=== PATIENT | female | born 1965 | race Caucasian/White ===

== ENCOUNTER → 2021-09-05 | Outpatient (CLI) | payer BC ==
[~2021-09-05] MED LIST: ARIMIDEX1 MG PO; BUSPAR10 MG PO; GLUCOPHAGE850 MG/TAB PO; LEXAPRO 10MG10 MG PO; NORCO 325 MG-51 TAB PO; PRILOSEC10 MG PO; PRINIVIL20 MG PO; SODIUM CHLORIDE1 GM PO; TENORMIN 5050 MG/TAB PO; TYLENOL 325MG325 MG PO; ZOHYDRO ER10 MG PO
== END ==
LOC: COL.VAS 14:10
DX: M79.89 Other specified soft tissue disorders (principal)

== ENCOUNTER 2021-09-12 07:39 | Day surgery (SDC) | payer BC ==
[~2021-09-12] VITALS: Ht 170.2 cm; Wt 118.6 kg
[2021-09-12] MEDS ORDERED: TENORMIN 5050 MG/TAB PO (08:14)
[2021-09-12] MEDS ORDERED: PRINIVIL20 MG PO (08:14)
[2021-09-12] MEDS ORDERED: ARIMIDEX1 MG PO (08:15)
[2021-09-12] MEDS ORDERED: BUSPAR10 MG PO (08:16)
[2021-09-12] MEDS ORDERED: LEXAPRO 10MG10 MG PO (08:16)
[2021-09-12] MEDS ORDERED: GLUCOPHAGE850 MG/TAB PO (08:16)
[2021-09-12] MEDS ORDERED: ZOHYDRO ER10 MG PO ×3 (08:17→11:49)
[2021-09-12] MEDS ORDERED: PRILOSEC10 MG PO (08:18)
[2021-09-12 09:21] VITALS: BP 129/72; PULSE 59; TEMP 96.7
[2021-09-12] MEDS ORDERED: NORCO 325 MG-51 TAB PO (12:00)
[2021-09-12 12:20] VITALS: BP 129/72; PULSE 86; TEMP 98.6
--- NOTE | 2021-09-12 12:20 | NUR ---
Patient arrived from PACU escorted by ELISA Evans. Patient is sleepy but arousable. Report obtained. Vitals obtained. Mother is present in her room. Patient reports pain, 6/10. RN told the patient that she needs to have a small drink and a small snack before PO medication can be administered. Patient requested warm water and crackers. Side rails x2. Call russell is at bedside.
[2021-09-12 12:35] VITALS: BP 128/68; PULSE 83
--- NOTE | 2021-09-12 12:35 | NUR ---
Patient is more alert, however still sleeps unless stimulated. Patient is tolerating her water and crackers well. Patient requested a warm muffin to eat. Vitals obtained.
[2021-09-12 12:50] VITALS: BP 142/72; PULSE 90
--- NOTE | 2021-09-12 12:50 | NUR ---
Patient had two bites of the muffin and requested apple sauce. Patient also requested more luke warm water to drink. Vitals obtained.
[2021-09-12 13:05] VITALS: BP 160/78; PULSE 60
--- NOTE | 2021-09-12 13:14 | NUR ---
Zofran administered due to neusea with vomiting, 20ml total. Patient expressed desire to go home.
--- NOTE | 2021-09-12 13:30 | NUR ---
Patient was assisted with ambulating from bed to commode, and then to the bathroom. Patient was able to void. IV disconnected at this time.
--- NOTE | 2021-09-12 13:45 | NUR ---
Discharge instructions and educational material was reviewed at this time. Patient verbalized understanding and signed the related paperwork. Patient denied having any further questions or concerns. IV discontinued at this time. Catheter tip intact. Pressure dressing applied. No swelling or redness noted.
--- NOTE | 2021-09-12 14:00 | NUR ---
Patient is waiting for her ride to arrive.
--- NOTE | 2021-09-12 14:30 | NUR ---
Patient was escorted out to the patient entrence by ELISA Ortega and transferred into the care of her Mother, and brother who is present to drive. Patient was assisted into the front seat, where she secured her seat belt. Her mother has the discharge packet and personal belongings.
== END 2021-09-12 14:45 | disposition home or self-care (01) ==
LOC: SDCO 07:39
DX: K80.10 Calculus of gallbladder with chronic cholecystitis without obstruction (principal); C96.9 Malignant neoplasm of lymphoid, hematopoietic and related tissue, unspecified; E11.9 Type 2 diabetes mellitus without complications; K21.9 Gastro-esophageal reflux disease without esophagitis; I10 Essential (primary) hypertension; F32.9 Major depressive disorder, single episode, unspecified; F41.9 Anxiety disorder, unspecified; F32.A Depression, unspecified; Z79.84 Long term (current) use of oral hypoglycemic drugs; Z79.899 Other long term (current) drug therapy; Z85.42 Personal history of malignant neoplasm of other parts of uterus; Z83.3 Family history of diabetes mellitus
CPT/HCPCS: J0690; J1100; J2405; J2704; J2710; J3010; J7030; J7120

== ENCOUNTER 2021-09-14 08:10 | Inpatient (IN) | payer BC ==
[~2021-09-14] VITALS: Ht 170.2 cm; Wt 128.0 kg
[~2021-09-14 08:10] MED LIST changes: -SODIUM CHLORIDE1 GM PO; -TYLENOL 325MG325 MG PO
[2021-09-14 08:59] LABS: HEMOGLOBIN 11.9 g/dl (12.5-16.0); MEAN CELL VOLUME 81 fl (80.0-100.0); MEAN CORPUSCULAR HEMOGLOBIN 27 pg (27-31); MEAN CORPUSCULAR HGB CONC 34 g/dl (33.0-37.0); MEAN PLATELET VOLUME 10.6 fl (7.4-10.4); PLATELET COUNT 285 K/mm3 (130-400); RED BLOOD COUNT 4.34 M/mm3 (4.10-5.30); REDCELL DISTRIBUTION WIDTH-CV 14.8 % (11.5-14.5)
[2021-09-14 09:00] LABS: HEMATOCRIT 35.2 % (37.0-47.0)
[2021-09-14 09:12] LABS: BAND 3 % (0-10); LYMPHOCYTE 5 % (20.0-51.0); NEUTROPHILS 82 % (42.0-75.2); PLATELET ESTIMATE NORMAL (NORMAL)
[2021-09-14 09:17] LABS: BILIRUBIN,TOTAL 0.5 mg/dL (0.2-1.2); C-REACTIVE PROTEIN 29.79 mg/dL (0.00-0.50); CALCIUM 11.4 mg/dL (8.4-10.2); CREATININE, serum 1.64 mg/dL (0.57-1.11); POTASSIUM 4.9 mmol/L (3.5-4.5); TOTAL PROTEIN 7.7 gm/dL (6.2-8.1)
[2021-09-14 10:30] LABS: COLLECTION METHOD CLEAN CATCH
[2021-09-14 10:44] LABS: MUCOUS Present (NOT PRESENT); PH 5 (5-8); SQUAMOUS EPITHELIAL 0-2 /hpf (0-10); URINE APPEARANCE Hazy (CLEAR/HAZY); URINE BACTERIA None Seen /hpf (NONE SEEN); URINE BILIRUBIN Negative (NEGATIVE); URINE BLOOD Negative (NEGATIVE); URINE COLOR Yellow (YELLOW); URINE GLUCOSE Negative (NEGATIVE); URINE KETONE Trace (NEGATIVE); URINE LEUKOCYTE ESTERASE Negative (NEGATIVE); URINE NITRATE Negative (NEGATIVE); URINE PROTEIN(semi-quant) 1+ (NEGATIVE); URINE RBC 0-2 /hpf (0-2); URINE UROBILINOGEN Negative (NEGATIVE)
[2021-09-14] MEDS ORDERED: TYLENOL 325MG325 MG PO (14:31)
[2021-09-14 14:42] VITALS: BP 131/67; PULSE 70; TEMP 98
--- NOTE | 2021-09-14 14:42 | NUR ---
PT ADMITTED TO ROOM 327 FROM ED. MED REC COMPLETE PT ORIETNTED TO ROOM. SITTING UP IN RECLINER AT THIS TIME, DENIES N/V OR PAIN. INT TO RH.
[2021-09-14 16:23] VITALS: BP 127/67; PULSE 70; TEMP 97.5
[2021-09-14 16:23] LABS: CALCIUM 11.1 mg/dL (8.4-10.2); CREATININE, serum 1.55 mg/dL (0.57-1.11); POTASSIUM 5.1 mmol/L (3.5-4.5)
[2021-09-14 16:55] LABS: OSMOLALITY-URINE random 684 Osm/kg (50-1200)
[2021-09-14] MEDS ORDERED: PRILOSEC10 MG PO (20:11)
--- NOTE | 2021-09-14 21:30 | NUR ---
PT INDEPENDENT IN ROOM. ON FLUID RESTRICTION AND NO FREE WATER, NA+=128. HAS SL TO RT HAND, FLUSHES WELL. DISCUSSED NEXT LAB DRAW FOR 2299. PT VERBALIZES UNDERSTANDING. TAKES HS MED WITHOUT PROBLEM, DENIES PAIN. LAP SITES X6 TO ABD HEALING.
[2021-09-15] VITALS (7 sets, daily range): BP systolic 133–150; BP diastolic 61–77; PULSE 59–67; TEMP 97.3–98
[2021-09-15 00:12] LABS: CREATININE, serum 1.62 mg/dL (0.57-1.11); POTASSIUM 4.8 mmol/L (3.5-4.5)
--- NOTE | 2021-09-15 02:30 | NUR ---
PT AWAKE, REPORTS BED IS UNCOMFORTABLE. REMAINS ON FLUID RESTRICTION.
--- NOTE | 2021-09-15 06:44 | NUR ---
Bedside shift change complete w/ Sailaja, RN. Pt. resting in bed, awake. Pt. denies needs at this time, call light and belongings in reach.
[2021-09-15 06:53] LABS: HEMOGLOBIN 11.6 g/dl (12.5-16.0); MEAN CELL VOLUME 83 fl (80.0-100.0); MEAN CORPUSCULAR HEMOGLOBIN 28 pg (27-31); MEAN CORPUSCULAR HGB CONC 34 g/dl (33.0-37.0); MEAN PLATELET VOLUME 11.2 fl (7.4-10.4); PLATELET COUNT 275 K/mm3 (130-400); RED BLOOD COUNT 4.18 M/mm3 (4.10-5.30); REDCELL DISTRIBUTION WIDTH-CV 14.9 % (11.5-14.5)
[2021-09-15 06:59] LABS: CALCIUM 11.2 mg/dL (8.4-10.2); CREATININE, serum 1.52 mg/dL (0.57-1.11); POTASSIUM 4.7 mmol/L (3.5-4.5)
[2021-09-15 07:01] LABS: HEMATOCRIT 34.6 % (37.0-47.0)
[2021-09-15 07:52] LABS: PLATELET ESTIMATE NORMAL (NORMAL)
[2021-09-15 07:54] LABS: LYMPHOCYTE 7 % (20.0-51.0); NEUTROPHILS 83 % (42.0-75.2)
--- NOTE | 2021-09-15 08:59 | NUR ---
Pt. progressing w/ plan of care. Pt. asking questions about fluid restriction. Education provided. Pt. voiding and drinking gatorade. Needs addressed, call light and belongings in reach.
--- NOTE | 2021-09-15 09:24 | NUR ---
Initial visit; Patient thanked [employer] for looking in on her and offering God's blessings and to keep her in [employer]'s prayers.
--- NOTE | 2021-09-15 09:26 | NUR ---
Manager Software met with patient to discuss discharge planning. Patient lives in [place] with her mother, Wanda (ph#[phone]) and sees Dr. Katina Claudio in [place] for primary care. Patient used to live in [place], however moved to [place] last November. Patient obtains medications from [facility] with no difficulties. Patient does not use any DME and is independent with ADLS. Patient sees Dr. Smith, Oncologist for her cancer diagnosis and receives chemotherapy. Patient reports she has DPOA- which designates her mom and her brother, Barrington (ph#[phone]). Patient states she will have her mom bring in a copy. Patient plans to return home upon discharge.
[2021-09-15 16:11] LABS: CALCIUM 10.9 mg/dL (8.4-10.2); CREATININE, serum 1.54 mg/dL (0.57-1.11); POTASSIUM 4.5 mmol/L (3.5-4.5)
--- NOTE | 2021-09-15 19:18 | NUR ---
Pt. feeling relief to lower back pain w/ k-pad and tylenol, approved by Dr. Albarado. Needs addressed. Report provided to oncoming ELISA Whatley.
--- NOTE | 2021-09-15 21:25 | NUR ---
PT IS PLEASANT, ALERT AND ORIENTATED. PT STATES THAT SHE HAS NO NEEDS, HAD QUESTIONS ABOUT HOW MANY TIMES WILL SHE BE TAKING THE SALT TABLET. THIS RN EDUCATED ABOUT CURRENT BID STATUS UNTIL HYPONATREMIA RESOLVES. PT MAIN GOAL IS TO GET SOME SLEEP TONIGHT. CALL LIGHT IN REACH.
[2021-09-16 04:00] VITALS: BP 146/72; PULSE 64; TEMP 97.5
--- NOTE | 2021-09-16 06:16 | NUR ---
PT HAD AN UNEVENTFUL NIGHT. PT SLEPT FOR ABOUT 5 HOURS TONIGHT. PT COMPLAINED OF 5/10 PAIN ABOUT 0515 IN UPPER ABDOMEN. PT STATED SHE WOULD GIVE THE NORCO A TRY, AND WE WOULD MONITOR HER. PT STATED THAT SHE WAS ABLE TO GO BACK TO SLEEP AND NOW RATES HER PAIN 2/10. PT IS ALERT AND ORIENTATED. SHE STATED SHE WAS COMFORTABLE WITH THIS FEELING AND AGREED THAT MAYBE NEW DOSE OF NORCO (1 TAB) WAS GOOD FOR HER. ALL MEDICATIONS GIVEN, ALL NEEDS MET. CALL LIGHT IN REACH.
[2021-09-16 06:17] LABS: HEMOGLOBIN 11.7 g/dl (12.5-16.0); MEAN CELL VOLUME 84 fl (80.0-100.0); MEAN CORPUSCULAR HEMOGLOBIN 28 pg (27-31); MEAN CORPUSCULAR HGB CONC 33 g/dl (33.0-37.0); MEAN PLATELET VOLUME 11.1 fl (7.4-10.4); PLATELET COUNT 317 K/mm3 (130-400); RED BLOOD COUNT 4.24 M/mm3 (4.10-5.30); REDCELL DISTRIBUTION WIDTH-CV 15.2 % (11.5-14.5)
[2021-09-16 06:28] LABS: CALCIUM 11.2 mg/dL (8.4-10.2); CREATININE, serum 1.49 mg/dL (0.57-1.11); POTASSIUM 4.3 mmol/L (3.5-4.5)
[2021-09-16 06:35] LABS: HEMATOCRIT 35.7 % (37.0-47.0)
--- NOTE | 2021-09-16 06:45 | NUR ---
Bedside shift report complete w/ ELISA Whatley. Pt. resting in bed w/ eyes closed. Call light and belongings in reach.
[2021-09-16 07:26] LABS: BAND 8 % (0-10); LYMPHOCYTE 10 % (20.0-51.0); NEUTROPHILS 78 % (42.0-75.2); PLATELET ESTIMATE NORMAL (NORMAL)
[2021-09-16 07:48] VITALS: BP 142/68; PULSE 58; TEMP 98
--- NOTE | 2021-09-16 08:37 | NUR ---
Pt. progressing w/ plan of care. AM meds given and assessment complete. Fluid restriction enforced. Needs addressed, call light and belongings in reach.
[2021-09-16] MEDS ORDERED: SODIUM CHLORIDE1 GM PO (09:44)
[2021-09-16] MEDS ORDERED: NORCO 325 MG-51 TAB PO (09:58)
--- NOTE | 2021-09-16 12:30 | NUR ---
Pt. discharged home. IV removed, site c/d/i. All paperwork reviewed with patient and her mother. All questions answered. Pt. left unit by wheelchair w/ TERI Pina.
== END 2021-09-16 12:30 | disposition home or self-care (01) | DRG 644 ==
LOC: COL.ER 08:10 → SURG 11:03
PROVIDERS: Family Medicine; Physician Assistant; ADMIT Internal Medicine
DX: E22.2 Syndrome of inappropriate secretion of antidiuretic hormone (principal); C79.89 Secondary malignant neoplasm of other specified sites; N17.9 Acute kidney failure, unspecified; G47.00 Insomnia, unspecified; C54.1 Malignant neoplasm of endometrium; F41.9 Anxiety disorder, unspecified; F32.A Depression, unspecified; G89.29 Other chronic pain; M54.50 Low back pain, unspecified; R63.1 Polydipsia; T39.95XA Adverse effect of unspecified nonopioid analgesic, antipyretic and antirheumatic, initial encounter; I12.9 Hypertensive chronic kidney disease with stage 1 through stage 4 chronic kidney disease, or unspecified chronic kidney disease; N18.9 Chronic kidney disease, unspecified; E11.22 Type 2 diabetes mellitus with diabetic chronic kidney disease; E83.52 Hypercalcemia; Z23 Encounter for immunization
CPT/HCPCS: 99223-AI; 99232-AI; 99239; C9113; J1644; J7030

== ENCOUNTER → 2021-09-18 | Outpatient (CLI) | payer BC ==
[~2021-09-18] MED LIST changes: +SODIUM CHLORIDE1 GM PO; +TYLENOL 325MG325 MG PO
[2021-09-18 11:43] LABS: HEMOGLOBIN 11.1 g/dl (12.5-16.0); MEAN CELL VOLUME 85 fl (80.0-100.0); MEAN CORPUSCULAR HEMOGLOBIN 27 pg (27-31); MEAN CORPUSCULAR HGB CONC 32 g/dl (33.0-37.0); MEAN PLATELET VOLUME 10.4 fl (7.4-10.4); PLATELET COUNT 329 K/mm3 (130-400); RED BLOOD COUNT 4.11 M/mm3 (4.10-5.30); REDCELL DISTRIBUTION WIDTH-CV 15.7 % (11.5-14.5)
[2021-09-18 11:45] LABS: HEMATOCRIT 34.8 % (37.0-47.0)
[2021-09-18 12:09] LABS: ALBUMIN 2.5 gm/dL (3.5-5.0); BILIRUBIN,TOTAL 0.3 mg/dL (0.2-1.2); CALCIUM 10.4 mg/dL (8.4-10.2); CREATININE, serum 1.45 mg/dL (0.57-1.11); POTASSIUM 4.7 mmol/L (3.5-4.5); TOTAL PROTEIN 7.7 gm/dL (6.2-8.1)
== END ==
LOC: COL.LAB 11:03
PROVIDERS: Urology
DX: D72.829 Elevated white blood cell count, unspecified (principal); E87.1 Hypo-osmolality and hyponatremia

== ENCOUNTER → 2021-09-22 | Outpatient (CLI) | payer BC ==
[2021-09-22 14:18] LABS: ALBUMIN 2.8 gm/dL (3.5-5.0); BILIRUBIN,TOTAL 0.3 mg/dL (0.2-1.2); CALCIUM 10.7 mg/dL (8.4-10.2); CREATININE, serum 1.33 mg/dL (0.57-1.11); TOTAL PROTEIN 7.5 gm/dL (6.2-8.1)
== END ==
LOC: COL.LAB 13:30
DX: E87.1 Hypo-osmolality and hyponatremia (principal)

== ENCOUNTER 2021-10-06 17:48 | Inpatient (IN) | payer BC ==
[~2021-10-06] VITALS: Ht 167.6 cm; Wt 114.4 kg
[2021-10-06 22:54] LABS: HEMOGLOBIN 11.7 g/dl (12.5-16.0); MEAN CELL VOLUME 86 fl (80.0-100.0); MEAN CORPUSCULAR HEMOGLOBIN 28 pg (27-31); MEAN CORPUSCULAR HGB CONC 32 g/dl (33.0-37.0); MEAN PLATELET VOLUME 10.6 fl (7.4-10.4); PLATELET COUNT 321 K/mm3 (130-400); RED BLOOD COUNT 4.24 M/mm3 (4.10-5.30); REDCELL DISTRIBUTION WIDTH-CV 16.8 % (11.5-14.5)
[2021-10-06 22:57] LABS: HEMATOCRIT 36.4 % (37.0-47.0)
[2021-10-06 23:11] LABS: ANISOCYTOSIS 1+; BAND 3 % (0-10); BASOPHIL 1 % (0-2); EOSINOPHIL 2 % (0-4); HYPOCHROMIA 1+; LYMPHOCYTE 12 % (20.0-51.0); METAMYELOCYTE 2 % (0-0); NEUTROPHILS 72 % (42.0-75.2); PLATELET ESTIMATE NORMAL (NORMAL)
[2021-10-06 23:13] LABS: ALBUMIN 3.5 gm/dL (3.5-5.0); BILIRUBIN,TOTAL 0.4 mg/dL (0.2-1.2); C-REACTIVE PROTEIN 6.25 mg/dL (0.00-0.50); CREATININE, serum 2.3 mg/dL (0.57-1.11); POTASSIUM 5.1 mmol/L (3.5-4.5); TOTAL PROTEIN 8.4 gm/dL (6.2-8.1)
[2021-10-06 23:20] LABS: CALCIUM 13.4 mg/dL (8.4-10.2)
[2021-10-07 00:01] LABS: COLLECTION METHOD CLEAN CATCH
[2021-10-07 00:06] LABS: MUCOUS Present (NOT PRESENT); PH 5 (5-8); URINE APPEARANCE Hazy (CLEAR/HAZY); URINE BACTERIA None Seen /hpf (NONE SEEN); URINE BILIRUBIN Negative (NEGATIVE); URINE BLOOD Negative (NEGATIVE); URINE COLOR Yellow (YELLOW); URINE GLUCOSE Negative (NEGATIVE); URINE KETONE Trace (NEGATIVE); URINE LEUKOCYTE ESTERASE Negative (NEGATIVE); URINE NITRATE Negative (NEGATIVE); URINE PROTEIN(semi-quant) 1+ (NEGATIVE); URINE RBC 0-2 /hpf (0-2); URINE UROBILINOGEN Negative (NEGATIVE)
[2021-10-07] MEDS ORDERED: GLUCOPHAGE1000 MG PO (03:42)
[2021-10-07] MEDS ORDERED: NORCO 325 MG-7.1 TAB PO (03:43)
[2021-10-07] MEDS ORDERED: BUSPAR5 MG PO (03:43)
[2021-10-07] MEDS ORDERED: PRINIVIL20 MG PO (03:44)
[2021-10-07] MEDS ORDERED: LIPITOR 10MG10 MG PO (03:44)
--- NOTE | 2021-10-07 04:08 | NUR ---
PT ARRIVES VIA W/C TO ROOM 328. IS ALERT, CONFUSED. HAS IVF INFUSING TO LEFT AC WITHOUT PROBLEM. BED ALARM SET.
[2021-10-07 04:24] VITALS: BP 116/45; PULSE 63; TEMP 97.5
--- NOTE | 2021-10-07 05:06 | NUR ---
PT RESTLESS, CONFUSED, SECOND SEROQUEL GIVEN.
--- NOTE | 2021-10-07 05:50 | NUR ---
REMOVED IV SITE, WAS IN HALLWAY, HAD TELEMETRY OFF. PT CONFUSED, DOES NOT KNOW WHERE SHE IS AND DOES NOT FOLLOW DIRECTION. BED ALARM ON.
[2021-10-07 06:46] LABS: HEMOGLOBIN 11.5 g/dl (12.5-16.0); MEAN CELL VOLUME 86 fl (80.0-100.0); MEAN CORPUSCULAR HEMOGLOBIN 28 pg (27-31); MEAN CORPUSCULAR HGB CONC 33 g/dl (33.0-37.0); MEAN PLATELET VOLUME 11.1 fl (7.4-10.4); PLATELET COUNT 316 K/mm3 (130-400); RED BLOOD COUNT 4.11 M/mm3 (4.10-5.30); REDCELL DISTRIBUTION WIDTH-CV 16.8 % (11.5-14.5)
--- NOTE | 2021-10-07 06:47 | NUR ---
NEW IV SITE TO LEFT FOREARM PLACED BY BETH PÉREZ. PT WITH BED ALARM ON.
[2021-10-07 06:57] LABS: HEMATOCRIT 35.3 % (37.0-47.0)
[2021-10-07 07:20] LABS: CREATININE, serum 2.35 mg/dL (0.57-1.11); POTASSIUM 4.8 mmol/L (3.5-4.5)
[2021-10-07 07:25] LABS: CALCIUM 13.1 mg/dL (8.4-10.2)
[2021-10-07 07:38] LABS: BAND 6 % (0-10); EOSINOPHIL 2 % (0-4); LYMPHOCYTE 19 % (20.0-51.0); NEUTROPHILS 66 % (42.0-75.2)
[2021-10-07 07:40] LABS: HYPOCHROMIA 1+; METAMYELOCYTE 3 % (0-0); PLATELET ESTIMATE NORMAL (NORMAL)
[2021-10-07 08:30] VITALS: BP 108/56; PULSE 72
--- NOTE | 2021-10-07 08:56 | NUR ---
Patient is confused, alert to self. Confused to place, time, date and situation. Denies pain. Allowed this nurse to supervisor ticket sales IV fluids at this time. Ruchi Alvarado notified of critical calcium at 0758, status report given at that time. Betsy Austin updated on nephrology consult at 0759, questions answered. PURCHASING MANAGER/SALES sitting with patient as she is impulsive and not aware of situation. Breakfast tray ordered for her. NS infusing as ordered to [facility] INT. Dr. Jack rounds at this time. Call light within reach.
--- NOTE | 2021-10-07 10:55 | NUR ---
Initial visit; Patient has altered mental status, Nuclear Medicine Officer spoke with her nurse wishing her well and offering God's blessings. Nurse thanked Nuclear Medicine Officer for stopping.
--- NOTE | 2021-10-07 11:20 | NUR ---
Bowling catheter inserted, see intervention. Immediate return of clear yellow urine. Report given to richard Bridges RN. Questions answered.
[2021-10-07 12:37] VITALS: BP 129/66; PULSE 71; TEMP 97.5
--- NOTE | 2021-10-07 12:52 | NUR ---
The patient has altered mental status and was confused and agitated. She now has a sitter. SW contacted the patient's mother, Wanda (ph#[phone]), to discuss discharge plan. The patient lives in [place] with her mother. Wanda reports that up until a week ago, the patient was independent with ADLs and states that she has a wheelchair, stoolriser, showerbench, and commode. Wanda reports that the patient normally does not need any assistive devices, but that she has not been eating and has been very weak this last week. The patient's PCP is Dr. Cristina Harry and she receives her medications from [facility]. Wanda reports no difficulties obtaining her meds. The patient's DPOA-HC is in EMR and it designates the patient's mother, Wanda. The alternate is the patient's brother, Barrington. Wanda reports that with the patient's current status, she is unsure what and if the patient will need anything upon discharge. She states that the patient is not receiving any treatment for cancer right now and not on any chemo. PT/OT have been monitored. SW to continue to follow. *Discharge plan: Undetermined at this time*
[2021-10-07 16:02] VITALS: BP 121/63; PULSE 69; TEMP 97.8
[2021-10-07 19:54] VITALS: BP 145/61; PULSE 75; TEMP 98.3
--- NOTE | 2021-10-07 21:43 | NUR ---
PT IS BEGINNING TO BECOME MORE AGITATED AGAIN. IV ATIVAN ADMINISTERED THROUGH PERIPHERAL IV IN LEFT FA. IVF INFUSING. PT IS IN BED, KEEPS EYES CLOSED ET FREQUENTLY MUMBLES, DOES RESPOND TO ORAL COMMANDS, IS CONFUSED. PT REFUSES ORAL INTAKE ET WILL NOT TAKE A DRINK WHEN OFFERED. PT REPEATEDLY STATES THAT SHE NEEDS TO "GET DOWN" ET ATTEMPTS TO PULL ON IV ET THAKKAR CATHETER. PT ALSO REPEATEDLY ATTEMPTS TO SIT UP ET LEAVE BED BY SELF. SITTER IS SITTING OUTSIDE PT'S ROOM. RESPIRATIONS ARE UNLABORED ET EVEN. THAKKAR CATHETER DRAINING DEPENDENTLY. BED ALARM IS ON.
[2021-10-07 22:55] VITALS: BP 125/79; PULSE 86; TEMP 98.3
[2021-10-08] VITALS (9 sets, daily range): BP systolic 104–151; BP diastolic 47–75; PULSE 92–111; TEMP 99–101.9
--- NOTE | 2021-10-08 00:34 | NUR ---
PT APPEARS TO BE SLEEPING @ THIS TIME, VERY RARELY MOVES HER ARMS, RESPIRATIONS ARE UNLABORED. SITTER REMAINS @ DOORWAY. IVF INFUSING. BED ALARM ON.
--- NOTE | 2021-10-08 03:24 | NUR ---
PT'S BS IS LOW ET PT IS LETHARGIC. PT GROANS BUT DOES NOT OPEN EYES, HAS NOT HAD ANY ORAL INTAKE. IVF INFUSING. PT'S AXILLARY TEMP IS ALSO HIGH. PT IS WARM ET PALE BUT NOT DIAPHORETIC. THAKKAR CATHETER DRAINING YELLOW URINE. Luis COLE NOTIFIED OF PT CONDITION. CURRENTLY AWAITING NEW ORDERS. BED ALARM REMAINS ON.
[2021-10-08 04:06] LABS: COLLECTION METHOD IN
[2021-10-08 04:22] LABS: MUCOUS Present (NOT PRESENT); SQUAMOUS EPITHELIAL 0-2 /hpf (0-10); URINE APPEARANCE Clear (CLEAR/HAZY); URINE BACTERIA None Seen /hpf (NONE SEEN); URINE COLOR Yellow (YELLOW); URINE RBC >50 /hpf (0-2)
[2021-10-08 04:23] LABS: PH 5 (5-8); URINE BILIRUBIN Negative (NEGATIVE); URINE BLOOD 2+ (NEGATIVE); URINE GLUCOSE Negative (NEGATIVE); URINE KETONE Negative (NEGATIVE); URINE LEUKOCYTE ESTERASE Negative (NEGATIVE); URINE NITRATE Negative (NEGATIVE); URINE PROTEIN(semi-quant) Negative (NEGATIVE); URINE UROBILINOGEN Negative (NEGATIVE)
--- NOTE | 2021-10-08 04:44 | NUR ---
PT'S AXILLARY TEMP CONTINUES TO BE HIGH @ 101.8. PT IS NOT COVERED BY BLANKETS ET CONTINUES TO BE LETHARGIC. Luis COLE NOTIFIED, NO NEW ORDERS.
--- NOTE | 2021-10-08 05:16 | NUR ---
XRAY IN ROOM WITH PT
--- NOTE | 2021-10-08 05:44 | NUR ---
PT REMAINS LETHARGIC, DOES RESPOND TO PAINFUL STIMULI. PT GROANS ET WAVES HER ARMS WHEN LAB IS DRAWING BLOOD. AXILLARY TEMP IS NOW 102. M. DEAN COLE NOTIFIED. ICE PACKS ARE PLACED IN PT'S UNDERARMS. ALL BLANKETS HAVE REMAINED OFF OF PT. TEMPERATURE IN ROOM IS TURNED DOWN LOW POSSIBLE. PT APPEARS PALE. RESPIRATIONS ARE UNLABORED. IVF INFUSING. THAKKAR CATHETER DRAINING DEPENDENTLY. BED ALARM ON.
[2021-10-08 06:44] LABS: ARTERIAL BLD GAS O2 SATURATION 94.6 % (92-100); ARTERIAL BLD GAS TCO2 CT 21.5; ARTERIAL BLOOD GAS BASE EXCESS -3.3 (-2-2); ARTERIAL BLOOD GAS HCO3 20.5 meq/L (22-26); ARTERIAL BLOOD GAS PCO2 32.9 mmHg (35-45); ARTERIAL BLOOD GAS PO2 67.9 mmHg (80-100); ARTERIAL BLOOD GAS pH 7.41 (7.35-7.45)
[2021-10-08 06:48] LABS: HEMOGLOBIN 10.9 g/dl (12.5-16.0); MEAN CELL VOLUME 86 fl (80.0-100.0); MEAN CORPUSCULAR HEMOGLOBIN 28 pg (27-31); MEAN CORPUSCULAR HGB CONC 32 g/dl (33.0-37.0); MEAN PLATELET VOLUME 11.1 fl (7.4-10.4); PLATELET COUNT 239 K/mm3 (130-400); RED BLOOD COUNT 3.95 M/mm3 (4.10-5.30); REDCELL DISTRIBUTION WIDTH-CV 16.9 % (11.5-14.5)
[2021-10-08 06:59] LABS: CALCIUM 12.2 mg/dL (8.4-10.2); CREATININE, serum 2.46 mg/dL (0.57-1.11); MAGNESIUM 1.4 mg/dL (1.6-2.6); POTASSIUM 4.6 mmol/L (3.5-4.5)
--- NOTE | 2021-10-08 07:31 | NUR ---
0725ATTEMPT TO TAKE PATIENT'S TEMP ORALLY X2, PATIENT REFUSED. UNABLE TO TAKE AN ACCURATE AXILLARY TEMP D/T ICE PACKS PLACED. WILL NOTIFY ASSIGNED RN.
[2021-10-08 08:25] LABS: ANISOCYTOSIS 1+; PLATELET ESTIMATE NORMAL (NORMAL)
[2021-10-08 08:48] LABS: BAND 22 % (0-10); LYMPHOCYTE 3 % (20.0-51.0); METAMYELOCYTE 1 % (0-0); NEUTROPHILS 72 % (42.0-75.2); OVALOCYTES 1+
--- NOTE | 2021-10-08 08:50 | NUR ---
ATTEMPT TO WAKE PATIENT AT THIS TIME FOR BREAKFAST. PATIENT IN DEEP SLEEP, PATIENT DOES MOVE AWAY WHEN RN TOUCHED HER ARM. WILL CHECK AGAIN TO SEE IF PATIENT WOULD LIKE TO EAT BREAKFAST.
--- NOTE | 2021-10-08 11:32 | NUR ---
The patient had continued agitation overnight and was given Ativan and Haldol. MIGUEL ANGEL attended clinical rounds. The patient's mother, Wanda, at bedside. With the concern for METS to the brain, MIGUEL ANGEL asked the hospitalist for a palliative care consult to be ordered, to discuss goals of care. MIGUEL ANGEL then met with the patient's mother and inquired about Medicaid. Wanda reports that the patient has not applied for Medicaid, but she would be interested in getting her applied for it. MIGUEL ANGEL consulted Nirmal with financial counseling.
--- NOTE | 2021-10-08 12:02 | NUR ---
1200PATIENT'S NURSE NOTIFIED OF LOW URINE OUTPUT SINCE START OF SHIFT. PATIENT ALSO REPOSITIONED TO LEFT SIDE WITH PILLOW. PATIENT RESPONDS WITH MOVEMENT
--- NOTE | 2021-10-08 12:09 | NUR ---
1208PATIENT AGITATED IN ROOM, PULLED OFF HAND MITS. HAND MITS REAPPLIED AND ENSURED PATIENT SAFETY. BED ALARM ON. WILL NOTIFY ASSIGNED RN.
--- NOTE | 2021-10-08 13:13 | NUR ---
CT OF ABDOMEN ATTEMPTED BUT PT BECAME AGITATED AND COULD NOT LAY STILL. THIS NURSE PREMEDICATED HER WITH ATIVAN PRIOR TO CT. NOW BACK IN ROOM SLEEPING SOUNDLY.
--- NOTE | 2021-10-08 14:25 | NUR ---
Call made to patient's mother Wanda. She confirms the patient is a DNR and when discussing the patient's cancer, states that they were leaving things up to Dr. Smith about treatment options. Wanda thought he had mentioned that chemo was still an option but isn't sure and thought the hospitalist was going to talk with him and see what the plan was. Wanda also states she cannot care for the patient at home anymore so we discussed various facilities. She is having to work through financial matters for the patient and won't be in to visit tomorrow but I told her I would talk with the doctor and touch base with her tomorrow.
--- NOTE | 2021-10-08 14:55 | NUR ---
1450PATIENT ATTEMPTING TO GET OUT OF BED AT THIS TIME. PATIENT HAD REMOVED SOFT MITTEN FROM LEFT HAND. PATIENT VERY AGITATED. OFFERED PATIENT A DRINK, PATIENT SAID YES THEN REFUSED WHEN STRAW PLACED ON HER MOUTH. THIS RN WAS ABLE TO GET SOFT MITTEN BACK ON LEFT HAND AND REMINDED PATIENT THAT THEY ARE TO HELP HER NOT PULL OUT HER IV OR HER THAKKAR. WILL CONTINUE TO MONITOR. 1455PATIENT ATTEMPTING TO GET OUT OF BED AGAIN. PATIENT SWINGING ARMS AT NURSES, WILL NOT OPEN HER EYES. COMFORTED PATIENT AND COVERED WITH BLANKET. WILL CONTINUE TO MONITOR.
--- NOTE | 2021-10-08 19:00 | NUR ---
CT CALLED THIS EVENING TO ATTEMPT SCAN AGAIN, THEY SAID THEY WOULD CALL BACK. NIGHT RN NOTIFIED OF NEED TO GET CT DONE AND WILL DOSE WITH ATIVAN PRIOR TO SCAN ACCORDINGLY.
[2021-10-09 02:20] VITALS: PULSE 100
--- NOTE | 2021-10-09 02:24 | NUR ---
PT CONTINUES TO BE VERY RESTLESS, HEARD OCCASIONALLY MOANING. BREATHING IS LABORED ET RESPIRATIONS ARE 30/MINUTE. O2 SATS ARE 95% ON RA. PT HAS BEEN REPOSITIONED ET BECOMES INCREASINGLY AGITATED, SWINGS ARMS AROUND ET KICKS HER LEGS. Tim WONG APRN NOTIFIED OF PT CONDITION.
[2021-10-09 03:53] VITALS: BP 95/43; PULSE 89; TEMP 98.4
--- NOTE | 2021-10-09 04:10 | NUR ---
PT CONTINUES TO BE RESTLESS, GROANS ET FLAILS ARMS FREQUENTLY. URINE IS PT'S THAKKAR IS JANET ET VERY CLOUDY. Tim WONG APRN NOTIFIED, NO NEW ORDERS @ THIS TIME.
[2021-10-09 06:32] LABS: HEMOGLOBIN 10.3 g/dl (12.5-16.0); MEAN CELL VOLUME 86 fl (80.0-100.0); MEAN CORPUSCULAR HEMOGLOBIN 27 pg (27-31); MEAN CORPUSCULAR HGB CONC 32 g/dl (33.0-37.0); MEAN PLATELET VOLUME 10.8 fl (7.4-10.4); PLATELET COUNT 202 K/mm3 (130-400); RED BLOOD COUNT 3.77 M/mm3 (4.10-5.30); REDCELL DISTRIBUTION WIDTH-CV 17.3 % (11.5-14.5)
[2021-10-09 06:37] LABS: HEMATOCRIT 32.5 % (37.0-47.0)
[2021-10-09 06:47] LABS: CREATININE, serum 2.72 mg/dL (0.57-1.11); POTASSIUM 4.2 mmol/L (3.5-4.5)
[2021-10-09 07:27] VITALS: BP 97/84; PULSE 94; TEMP 98.7
[2021-10-09 08:03] LABS: ANISOCYTOSIS 1+; BAND 3 % (0-10); EOSINOPHIL 1 % (0-4); MYELOCYTE 2 % (0-0); PLATELET ESTIMATE NORMAL (NORMAL)
[2021-10-09 08:04] LABS: HYPOCHROMIA 2+
[2021-10-09 08:05] LABS: LYMPHOCYTE 6 % (20.0-51.0); NEUTROPHILS 84 % (42.0-75.2)
[2021-10-09 08:29] LABS: KAPPA FREE LIGHT CHAIN-SERUM 99.44 mg/L (()); KAPPA LAMBDA RATIO 1.44 ratio (()); LAMDA FREE LIGHT CHAIN SERUM 69.12 mg/L (())
--- NOTE | 2021-10-09 09:44 | NUR ---
PT RESTLESS FLAPPING HANDS IN AIR. SHOWING INCREASING AGITATION. PRN MEDICATIONS GIVEN ORDERED. SPOKE WITH PT'S MOTHER AND UPDATED. DISCUSSED CASE WITH PLACE CHANGE ROOF BOLTER.
--- NOTE | 2021-10-09 10:23 | NUR ---
PT UNABLE TO TAKE PO SAFELY AT THIS TIME.
[2021-10-09 11:11] VITALS: BP 137/55; PULSE 94; TEMP 98.2
--- NOTE | 2021-10-09 11:16 | NUR ---
PT CONTINUES TO BE CONFUSED AND UNABLE TO ANSWER QUESTIONS OR FOLLOW COMMANDS. DIETARY CONSULT FOR MALNUTRITION. PICC LINE TO BE PLACED.
--- NOTE | 2021-10-09 11:52 | NUR ---
Chemo precautions sign placed on door and notified primary nurse: double chemo gloved required for handling feces; ongoing or 10 days after last administration. Gown and face protection to be worn if splash risk present.
--- NOTE | 2021-10-09 13:37 | NUR ---
PICC LINE PLACED BY MIKKI MUHAMMAD.
--- NOTE | 2021-10-09 13:46 | NUR ---
Follow-up; contacted for patient. Father Harpreet will come this afternoon.
[2021-10-09 15:59] VITALS: BP 119/81; PULSE 106; TEMP 99.3
[2021-10-09 21:03] VITALS: BP 115/74; PULSE 106; TEMP 98.7
[2021-10-10] VITALS (9 sets, daily range): BP systolic 110–146; BP diastolic 59–82; PULSE 77–100; TEMP 97.8–98.2
--- NOTE | 2021-10-10 06:17 | NUR ---
2230- PT IS NOTED TO HAVE RED TINGED URINE WITH SMALL COTS IN THAKKAR CATH BAG ET TUBING. THAKKAR CONTINUES TO DRAIN, IS NOT IRRIGATED. Tim WONG APRN NOTIFIED. PT IS CONTINUOUSLY RESTLESS, FLAILS ARMS ET MOVES LEGS. PT IS OCCASSIONALLY HEARD GROANING BUT WILL NOT OPEN EYES OR FOLLOW COMMANDS. ATIVAN IV DOES NOT SEEM TO IMPROVE AGITATION. PT IS REPOSITIONED IN BED FREQUENTLY. 0330- PT CONTINUES TO BE RESTLESS. PT IS RESPONDING TO COMMANDS @ THIS TIME, OPENS BILATERAL EYES FULLY WHEN ASKED ET THEN CLOSES THEM AGAIN. PT IS ASKED YES/NO QUESTIONS ET RESPONDS WITH HEAD NODS. PT SHAKES HER HEAD NO WHEN ASKED IF SHE IS IN PAIN ET NODS HEAD YES WHEN ASKED IF HER MOUTH IS DRY. HOB IS ELEVATED ET PT OPENS MOUTH WHEN ASKED THEN CLOSES IT WHEN THIS NURSE ATTEMPTS TO SWAB PT'S MOUTH. PT CLENCHES MOUTH TIGHTLY CLOSED. HOB IS LOWERED AGAIN. IVF INFUSING INTO PICC LINE. RESPIRATIONS ARE UNLABORED BUT SHALLOW ET SOMETIMES TACHYPNEIC. BED ALARM IS ON. 0510- PT IS STILL RESTLESS, WAVES ARMS IN AIR. BLOOD IS DRAWN FROM PICC LINE FOR LABS.
[2021-10-10 06:49] LABS: CALCIUM 10.3 mg/dL (8.4-10.2); CREATININE, serum 2.94 mg/dL (0.57-1.11); MAGNESIUM 1.9 mg/dL (1.6-2.6); POTASSIUM 4.2 mmol/L (3.5-4.5)
--- NOTE | 2021-10-10 06:50 | NUR ---
in bed moving arms about, eyes closed and does not respond, bedside shift report received from ELISA Wei
--- NOTE | 2021-10-10 08:10 | NUR ---
remains in bed and not responsive to nurse, full assessment completed, see interventions for further info, continues to move arms about but does not appear in pain
--- NOTE | 2021-10-10 09:23 | NUR ---
Dr Jack in and talking with her mother
[2021-10-10 09:28] LABS: MEAN CELL VOLUME 86 fl (80.0-100.0); MEAN CORPUSCULAR HGB CONC 32 g/dl (33.0-37.0); MEAN PLATELET VOLUME 10.9 fl (7.4-10.4); PLATELET COUNT 164 K/mm3 (130-400); RED BLOOD COUNT 3.19 M/mm3 (4.10-5.30); REDCELL DISTRIBUTION WIDTH-CV 17.5 % (11.5-14.5)
[2021-10-10 09:30] LABS: HEMATOCRIT 27.3 % (37.0-47.0); HEMOGLOBIN 8.8 g/dl (12.5-16.0); MEAN CORPUSCULAR HEMOGLOBIN 28 pg (27-31)
[2021-10-10 10:09] LABS: ANISOCYTOSIS 1+; BAND 23 % (0-10); EOSINOPHIL 1 % (0-4); LYMPHOCYTE 10 % (20.0-51.0); METAMYELOCYTE 1 % (0-0); NEUTROPHILS 55 % (42.0-75.2); PLATELET ESTIMATE NORMAL (NORMAL)
[2021-10-10 10:26] LABS: A/G RATIO (PEP) 0.59 (())
[2021-10-10 10:52] LABS: PHOSPHOROUS 2.8 mg/dL (2.3-4.7)
--- NOTE | 2021-10-10 11:15 | NUR ---
she is more restful at this time, no moving her arms about or moaning
--- NOTE | 2021-10-10 11:28 | NUR ---
Met with mother at bedside. Discussed current patient status and how she was before. Also discussed other family in the area. Mother states patient is to receive a stent this afternoon and is hopeful it will help patient's mentation. Wanda and I decided to touch base this afternoon once the procedure is done and then again on Wednesday to see how the weekend went and if the plan of care is appropriate.
--- NOTE | 2021-10-10 11:45 | NUR ---
IV rate down to 50ml/hr
--- NOTE | 2021-10-10 16:30 | NUR ---
returned to room per bed from PACU, alert and moving about in bed, mitts on and pushing towards catheter, does not respond to her name, just continues to move about in bed, pulse ox on toe and she continues to push it off, medicated with ativan 1mg slo IV
--- NOTE | 2021-10-10 17:15 | NUR ---
is quieter now and rests with eyes closed
--- NOTE | 2021-10-10 18:40 | NUR ---
repositioned in bed, continues to move about in bed
--- NOTE | 2021-10-10 18:59 | NUR ---
bedside shift report given to ELISA Ruelas
[2021-10-11 00:04] VITALS: BP 129/75; PULSE 92; TEMP 97.8
[2021-10-11 04:32] VITALS: BP 138/70; PULSE 90; TEMP 97.7
[2021-10-11 07:28] VITALS: BP 136/66; PULSE 80; TEMP 97.4
[2021-10-11 07:31] LABS: CALCIUM 9.2 mg/dL (8.4-10.2); CREATININE, serum 2.8 mg/dL (0.57-1.11); MAGNESIUM 1.9 mg/dL (1.6-2.6); PHOSPHOROUS 2.4 mg/dL (2.3-4.7); POTASSIUM 3.7 mmol/L (3.5-4.5)
[2021-10-11 08:11] LABS: MEAN CELL VOLUME 88 fl (80.0-100.0); MEAN CORPUSCULAR HGB CONC 31 g/dl (33.0-37.0); MEAN PLATELET VOLUME 11.5 fl (7.4-10.4); PLATELET COUNT 181 K/mm3 (130-400); RED BLOOD COUNT 3.37 M/mm3 (4.10-5.30); REDCELL DISTRIBUTION WIDTH-CV 17.8 % (11.5-14.5)
[2021-10-11 08:21] LABS: HEMATOCRIT 29.8 % (37.0-47.0); HEMOGLOBIN 9.3 g/dl (12.5-16.0); MEAN CORPUSCULAR HEMOGLOBIN 28 pg (27-31)
[2021-10-11 10:17] LABS: ANISOCYTOSIS 1+; BAND 4 % (0-10); HYPOCHROMIA 2+; LYMPHOCYTE 14 % (20.0-51.0); METAMYELOCYTE 1 % (0-0); NEUTROPHILS 72 % (42.0-75.2); PLATELET ESTIMATE NORMAL (NORMAL)
[2021-10-11 10:20] LABS: SCHISTOCYTES 1+
[2021-10-11 11:43] VITALS: BP 134/68; PULSE 85; TEMP 97.4
[2021-10-11 12:34] LABS: PATHOLOGY DIFF REVIEW OK
[2021-10-11 16:31] VITALS: BP 138/90; PULSE 88; TEMP 97.4
[2021-10-11 20:00] VITALS: BP 145/77; PULSE 85; TEMP 97.3
[2021-10-12] VITALS: BP 138/66; PULSE 86; TEMP 97.4
[2021-10-12 04:00] VITALS: BP 138/68; PULSE 93; TEMP 97.7
--- NOTE | 2021-10-12 06:50 | NUR ---
in bed and moving arms about, bedside shift report received from ELISA Ruelas
--- NOTE | 2021-10-12 07:30 | NUR ---
full assessment completed, see interventions for further info,
[2021-10-12 07:31] VITALS: BP 168/76; PULSE 94; TEMP 97.3
[2021-10-12 08:01] LABS: CALCIUM 9.6 mg/dL (8.4-10.2); CREATININE, serum 2.59 mg/dL (0.57-1.11); MAGNESIUM 2.1 mg/dL (1.6-2.6); PHOSPHOROUS 2.1 mg/dL (2.3-4.7)
--- NOTE | 2021-10-12 09:29 | NUR ---
am hygiene completed by CNAs, repositioned to right side and she is quiet and not moving about, mitts removed from hands at this time, mother at bedside and will notify staff if patient starts to pull at lines
--- NOTE | 2021-10-12 11:00 | NUR ---
continues to rest in bed with mom at bedside
[2021-10-12 12:26] VITALS: BP 135/74; PULSE 93; TEMP 97.3
[2021-10-12 15:09] VITALS: BP 134/75; PULSE 94; TEMP 97.7
--- NOTE | 2021-10-12 17:02 | NUR ---
resting in bed, moaning at intervals,
--- NOTE | 2021-10-12 18:46 | NUR ---
had large loose brown BM, care provided, bedside shift report given to ELISA Oviedo
[2021-10-12 19:29] VITALS: BP 169/80; PULSE 100; TEMP 98.2
[2021-10-13 00:24] VITALS: BP 163/65; PULSE 100; TEMP 98.4
--- NOTE | 2021-10-13 02:00 | NUR ---
pt moaning fairly loud, continuously, attempted to orient pt to where she is, does not respond to nurse or follow commands. ativan given @2300, notified DANA Caceres, order rec'd for 1x dose of 0.5mg of Ativan, given and pt able to sleep.
[2021-10-13 05:02] VITALS: BP 175/76; PULSE 101; TEMP 98.1
--- NOTE | 2021-10-13 05:30 | NUR ---
pt voiding around catheter, only 50cc urine in bag, bed soaked underneath her. dc'd 16F catheter and replaced with 18F, immediate return of red tinged urine, pt tolerated well.
[2021-10-13 06:46] LABS: MEAN CELL VOLUME 86 fl (80.0-100.0); MEAN CORPUSCULAR HGB CONC 32 g/dl (33.0-37.0); MEAN PLATELET VOLUME 11.5 fl (7.4-10.4); PLATELET COUNT 185 K/mm3 (130-400); RED BLOOD COUNT 3.58 M/mm3 (4.10-5.30); REDCELL DISTRIBUTION WIDTH-CV 17.8 % (11.5-14.5)
[2021-10-13 06:55] LABS: HEMATOCRIT 30.6 % (37.0-47.0); HEMOGLOBIN 9.8 g/dl (12.5-16.0); MEAN CORPUSCULAR HEMOGLOBIN 27 pg (27-31)
--- NOTE | 2021-10-13 08:00 | NUR ---
PATIENT IS CONFUSED AND AGGITATED THIS AM. C JAVA DEVELOPER REPORTS THEY HAD TO CHANGE OUT HER THAKKAR WHICH INCREASED HER AGGITATION. VSS. PATIENT DOESN'T APPEAR TO HAVE ANY PAIN. EYES REMAIN CLOSED BUT SHE WILL OUTREACH LIBRARIAN HER UPPER & LOWER EXTREMITIES. MITTS TO BUE PATIENT HAD PREVIOUSLY BEEN PULLING AT HER LINES/THAKKAR. DNR. PATIENT ALSO REMAINS NON-VERBAL AND DOESN'T TAKE IN ANYTHING ORAL. PATIENT IS ON TPN AND IS INFUSING INTO RIGHT UPPER ARM PICC. IV ABX ALSO INFUSING INTO RIGHT PICC. THAKKAR TO DD WITH SMALL AMOUNTS OF PINK TINGED URINE. AM BS WAS 156. PATIENT IS TOTAL CARE. PT/OT/ST CALL CONSULTED BUT ALL THERAPIES HAVE HAD DIFFICULTIES WORKING WITH PATIENT DUE TO AMS. PATIENT GETTING PRN IV ATIVAN FOR AGGITATION. HEAD TO TOE ASSESSMENT COMPLETE. CALL LIGHT IN REACH. BED ALARM ON. PATIENT LIVES WITH HER ELDERLY MOTHER WHO HAS EXPRESSED SHE CAN NOT CARE FOR THE PATIENT AT HOME. MOTHER IS DISCUSSING HOSPICE OPTIONS WITH MEDICAL TEAM, FINANCIAL LEGAL ASSISTANT INVOLVED.
[2021-10-13 08:11] VITALS: BP 132/74; PULSE 111; TEMP 98.1
[2021-10-13 08:21] LABS: BAND 11 % (0-10); BASOPHIL 1 % (0-2); LYMPHOCYTE 7 % (20.0-51.0); METAMYELOCYTE 1 % (0-0); NEUTROPHILS 71 % (42.0-75.2)
[2021-10-13 08:22] LABS: ANISOCYTOSIS 1+; PLATELET ESTIMATE NORMAL (NORMAL)
[2021-10-13 08:56] LABS: ALBUMIN 2.4 gm/dL (3.5-5.0); BILIRUBIN,TOTAL 0.3 mg/dL (0.2-1.2); CALCIUM 9.1 mg/dL (8.4-10.2); CREATININE, serum 2.18 mg/dL (0.57-1.11); POTASSIUM 4.2 mmol/L (3.5-4.5); TOTAL PROTEIN 6.5 gm/dL (6.2-8.1)
--- NOTE | 2021-10-13 10:00 | NUR ---
PATIENT'S MOTHER AT BEDSIDE. HOSPITALIST TEAM ROUNDED EARLY THIS AM, NOTIFIED OF MOTHER'S ARRIVAL AND THEY WILL SWING BACK BY TO TALK TO HER.
--- NOTE | 2021-10-13 11:30 | NUR ---
Met with mother, Wanda, at bedside. She doesn't think that Rae would tolerate chemo in her current state and hasn't seen much mental status improvement over the last few days. She is still hopeful but was open to looking at hospice options around [place]. Notified SW and hospitalist team of our conversation with plans to continue them tomorrow after some medications have been changed for the patient.
[2021-10-13 11:55] VITALS: BP 120/86; PULSE 105; TEMP 98.3
--- NOTE | 2021-10-13 12:50 | NUR ---
MIGUEL ANGEL notified by Palliative care Rn Belen that the patient's mother would like to move towards hospice in a facility setting. Would prefer that the facility not be located in [place]. Agreement made to send referrals to [facility] to start. Wanda reports that she knows the patient has a life insurance policy and a [employer] account but is unsure of how much either one is worth. Wanda has not started a MATT application with anyone at this time. Educated her that Nirmal will be reaching out to her. Phone numbers given to me by Wanda are: Home- [phone] Fcvm-[phone] MIGUEL ANGEL reached out to Nirmal with financial counseling who states that she tried reaching out to the patient's mother last week and was unsuccessful. Notified Nirmal that the patient's mother was up in the room but would be leaving around noon and if able it would be best to come up and talk to her. Informed Nirmal that the patient is going to need placement.
[2021-10-13 15:30] VITALS: BP 132/75; PULSE 103; TEMP 98.4
[2021-10-13 20:35] VITALS: BP 153/60; PULSE 108; TEMP 98.8
--- NOTE | 2021-10-13 23:36 | NUR ---
PATIENT APPEARS RESTLESS AND AGITATED. PATIENT PULLING AT MITTENS AND ATTEMPTING TO REMOVE GOWN WHILE IN BED. PATIENT AROUSABLE BUT INCOHERENT WHEN ASKED TO ORIENT TO PERSON, TIME, AND PLACE. PATIENT GIVEN MEDICATION TO DECREASE AGITATION AND RESTLESSNESS. LUNGS REVEAL EXPIRATORY WHEEZES ON AUSCULTATION. BOWEL SOUNDS AUDIBLE, BUT HYPOACTIVE. SIGNIFICANT RLE EDEMA COMPARED TO LLE. PATIENT RESPOSITIONED AND RESTING IN BED WITH CALL LIGHT WITHIN REACH.
[2021-10-14] VITALS (7 sets, daily range): BP systolic 134–150; BP diastolic 55–87; PULSE 69–105; TEMP 98.1–99.5
--- NOTE | 2021-10-14 02:49 | NUR ---
PATIENT INCONTINENT OF BOWEL. LARGE, LOOSE STOOL COVERED TWO CHUX. PATIENT CLEANED, CHANGED, AND REPOSITIONED IN BED WITH CALL LIGHT NEAR.
--- NOTE | 2021-10-14 06:25 | NUR ---
PATIENT HAS BEEN VOCAL MOST OF THE NIGHT. PATIENT HAS BEEN DISPLAYING PERIODS OF AGITATION THROUGHOUT SHIFT. PATIENT WAS REPOSITIONED SEVERAL TIMES THROUGHOUT SHIFT AND COVERED WITH A SHEET.
--- NOTE | 2021-10-14 08:00 | NUR ---
PATIENT IS CONFUSED AND SL AGGITATED THIS AM. HOSPITALIST TEAM WOULD LIKE TO HOLD OFF ON SEDATIVE MEDS UNLESS SEVERE TO HELP IMPROVE AMS. VSS. PATIENT DOESN'T APPEAR TO HAVE ANY PAIN. EYES REMAIN CLOSED BUT SHE WILL ELECTRICAL CONTINUITY INSPECTOR HER UPPER & LOWER EXTREMITIES. MITTS TO BUE PATIENT HAD PREVIOUSLY BEEN PULLING AT HER LINES/THAKKAR. DNR. PATIENT ALSO REMAINS NON-VERBAL AND DOESN'T TAKE IN ANYTHING ORAL. PATIENT IS ON TPN AND IS INFUSING INTO RIGHT UPPER ARM PICC. IV ABX ALSO INFUSING INTO RIGHT PICC. THAKKAR TO DD WITH SMALL AMOUNTS OF PINK TINGED URINE. AM BS WAS 130. PATIENT IS TOTAL CARE. PT/OT/ST CALL CONSULTED BUT ALL THERAPIES HAVE HAD DIFFICULTIES WORKING WITH PATIENT DUE TO AMS. HEAD TO TOE ASSESSMENT COMPLETE. CALL LIGHT IN REACH. BED ALARM ON. PATIENT LIVES WITH HER ELDERLY MOTHER WHO HAS EXPRESSED SHE CAN NOT CARE FOR THE PATIENT AT HOME. MOTHER IS DISCUSSING HOSPICE OPTIONS WITH MEDICAL TEAM, PROGRAMMING DIRECTOR INVOLVED. PALLIATIVE CARE NURSE MEET WITH DAUGHTER YESTERDAY. NO DISCHARGE PLAN ESTABLISHED YET.
--- NOTE | 2021-10-14 10:36 | NUR ---
shift assessment completed.Pt on 2L O2 NC.Sat @ 89%.Pt appears agitated and confused.Mittens placed due to pt pulling on monreal tubing.PICC line in R.upper arm intact w/ no edema or redness. Monreal catheter in place with gross hematuria in urine output.NPO.
--- NOTE | 2021-10-14 12:15 | NUR ---
HOSPITALIST TEAM ROUNDING AND TALKING WITH FAMILY FRIEND KARRI.
--- NOTE | 2021-10-14 15:14 | NUR ---
Call made to Wanda, patient's mother, to give update and see what she thinks about the treatment plan. Wanda reports that her friend Catrina, that was visiting today, thinks Rae was more responsive and that Dr. Smith is planning to see Rae tomorrow then call Wanda. Wanda would like to give Rae "a chance" and is hoping she shows improvement in the next 48 hours as mentioned to her by "one of her doctors" today. Discussed with SW and care team.
--- NOTE | 2021-10-14 15:52 | NUR ---
Bhavani with [facility] states that they are unable to accept this patient due to; agitation and MATT pending status. Ama with [facility] states that they are unable to accept this patient due to; staffing shortages. Additional referrals faxed to: [facility] (They do not currently have a bed open, but patient is added to wait list)
--- NOTE | 2021-10-15 00:34 | NUR ---
PATIENT IS AWAKE BUT CONFUSED WHEN ASKED TO ORIENT TO PERSON, TIME, OR PLACE. PATIENT IS CONSTANTLY MOVING AND FLAILING IN BED THROUGHOUT ASSESSMENT. PATIENTS LUNGS ARE REVEALING AUDIBLE EXPIRATORY WHEEZES, BOWEL SOUNDS HYPOACTIVE. THAKKAR IN PLACE TO DD. JANET IN COLOR. PATIENT'S RLE IS LARGER THAN LEFT SIDE. PATIENT HAD A LARGE LOOSE BOWEL MOVEMENT AND WAS CLEANED, CHANGED LINENS, AND APPLIED DESINEX TO GROIN AND COCCYX AREA. PATIENT APPEARS SLIGHTLY AGITATED AND VOCALIZES INCOHERENT WORDS. PATIENT RESTING IN BED WITH CALL LIGHT WITHIN REACH AND BED ALARM ACTIVATED.
[2021-10-15 00:35] VITALS: BP 143/72; PULSE 110; TEMP 98.9
--- NOTE | 2021-10-15 03:15 | NUR ---
Davey COLE orders one time dose of Haldol 2mg IV for increased agitation.
[2021-10-15 04:42] VITALS: BP 121/65; PULSE 71; TEMP 99
[2021-10-15 06:23] LABS: MEAN CELL VOLUME 85 fl (80.0-100.0); MEAN CORPUSCULAR HGB CONC 33 g/dl (33.0-37.0); PLATELET COUNT 205 K/mm3 (130-400); RED BLOOD COUNT 3.56 M/mm3 (4.10-5.30); REDCELL DISTRIBUTION WIDTH-CV 17.9 % (11.5-14.5)
[2021-10-15 06:35] LABS: HEMATOCRIT 30.1 % (37.0-47.0); HEMOGLOBIN 9.8 g/dl (12.5-16.0); MEAN CORPUSCULAR HEMOGLOBIN 28 pg (27-31)
--- NOTE | 2021-10-15 06:58 | NUR ---
in bed with mitts on hands, talking and moving about in bed, bedside shift report received from ELISA White and Sailaja RN
[2021-10-15 07:00] VITALS: BP 128/64; PULSE 100; TEMP 98.7
[2021-10-15 07:05] LABS: BILIRUBIN,TOTAL 0.3 mg/dL (0.2-1.2); CALCIUM 8.6 mg/dL (8.4-10.2); CREATININE, serum 1.71 mg/dL (0.57-1.11); MAGNESIUM 2.2 mg/dL (1.6-2.6); POTASSIUM 4.9 mmol/L (3.5-4.5); TOTAL PROTEIN 6.7 gm/dL (6.2-8.1)
[2021-10-15 07:55] LABS: BAND 11 % (0-10); EOSINOPHIL 1 % (0-4); LYMPHOCYTE 4 % (20.0-51.0); METAMYELOCYTE 1 % (0-0); MYELOCYTE 1 % (0-0); NEUTROPHILS 72 % (42.0-75.2); PLATELET ESTIMATE NORMAL (NORMAL)
--- NOTE | 2021-10-15 08:11 | NUR ---
cardiopulmonary in to attempt sleep EEG
--- NOTE | 2021-10-15 08:19 | NUR ---
sleep EEG cancelled
--- NOTE | 2021-10-15 09:40 | NUR ---
quietly resting in bed at this time, with assistance she was rolled to her side, has approx 1cm area to top of back just below neck that looks like from friction and also down a ways another area of friction, once she is being moved then she becomes restless and moaning, full assssment completed, see interventions for further info
--- NOTE | 2021-10-15 09:52 | NUR ---
While performing hygiene on patient,noticed three locations of friction shearing the size of a quarter on the upper back.Primary nurse notified.
--- NOTE | 2021-10-15 10:11 | NUR ---
Shift assessment completed.PT on 2L NC SAT @ 92%.PT appears lethargic and agitated but able to answer inquiries.Noted Right leg appear edematous and non-pitting.PICC line intact with no signs of drainage/edema.Mitts on and intact.Bowling in place with dark may urine output.NPO.
[2021-10-15 11:01] VITALS: BP 133/80; PULSE 81; TEMP 98.7
--- NOTE | 2021-10-15 12:10 | NUR ---
Dr Pruett, Ruchi COLE and Belen, RN with palliative care in to visit with mother
--- NOTE | 2021-10-15 12:33 | NUR ---
Met with Dr. Pruett and patient's mother, Wanda, at bedside. Wanda had a conversation with oncology this AM and feels they have reached the point that comfort care is appropriate. Discussed what comfort care would look like here and that we will still look for another facility to provide hospice services. Dr. Pruett confirmed that orders were placed for comfort care here and I notified SW of the change in care plan. Wanda had several questions about insurance coverage and the like and I answered as best I could and told her I would have the financial counselor and SW follow-up.
--- NOTE | 2021-10-15 13:27 | NUR ---
in bed and moaning, medicated with roxanal 5mg SL and scopolamine patch placed, was able to let this nurs eknow she wanted her lips moistened
--- NOTE | 2021-10-15 13:57 | NUR ---
entered room and she continues to talk "gibberish" but when asked if she is in pain she says no and again indicates she needs her lips moistned, KELSEY Hopper and Dr Mantilla notified of her cognition
--- NOTE | 2021-10-15 15:00 | NUR ---
entered room with MEDIA RELATIONS ASSOCIATE, she is awake and asked if she could get up and walk around, with the assistance of the MEDIA RELATIONS ASSOCIATE assisted her up and sitting on side of bed, asking for a drink of water and placed drop in corner of her mouth, then asked for a blanket, when asked where she was thought she was in [place], reoriented to place, KELSEY Hopper called and came to room to see patient, will notify her mother, then laid back in bed and then went back to sleep
[2021-10-15 16:00] VITALS: BP 122/71; PULSE 124; TEMP 98.3
--- NOTE | 2021-10-15 16:00 | NUR ---
speech therapy was in to eval patient, states that approx 1 teaspon at a time and then encourage her to swallow after each drink,
--- NOTE | 2021-10-15 17:15 | NUR ---
found attemping to get out of bed to go to bathroom, with 2 people assisted back into bed and placed on bedpan
--- NOTE | 2021-10-15 18:26 | NUR ---
in bed moving about at times and moaning, but denies pain
--- NOTE | 2021-10-15 19:02 | NUR ---
bedside shift report given to ELISA Velasquez
--- NOTE | 2021-10-15 19:15 | NUR ---
Pt moaning, disoriented, aggitated and stating she is in pain. PRN oral morphine provided & KELSEY Piña notifed - she will place additional prn orders
--- NOTE | 2021-10-16 13:08 | NUR ---
Brenna from [facility] states they are not able to accept this patient due to no available MATT bed open. Rojelio with [facility] states that he didn't receive the referral. Rojelio reports that per [facility] policy, a patient that is MATT pending has to pay out of pocket for 30 days ($8,970/ $299 a day) or until the application is approved and once approved, the family will be reimbursed the full amount.
--- NOTE | 2021-10-16 16:07 | NUR ---
distillery worker general spoke with the patient's mother to discuss private pay detention placement. Wanda states that she would not be able to private pay. Encouraged her to look into the patient's [employer] account. Wanda states that she has a son flying into town on Wednesday and is getting help from another son here locally to figure out what to do. Asked Wanda if she was able to complete a MATT application with [facility]. Wanda resonded with " i will not fill anything out with her until my sons are here". Educated Wanda that MATT would be the patient's payor source upon acceptance to a facility and that most places are not accepting MATT pending right now. Let Wanda know that [facility] is willing to look at accepting but that they would need $8970 up front. Wanda asks how long the doctors think she will live without food and water. Told her the doctors really don't know and that it depended on the individuals body. Wanda states " there's no point in completing an application and going through all of this if she dies before it's approved". I reiterated that we needed to find a placement for the patient as it is my understanding from her that doing hospice at home was not an option and that she would not be able to stay at the hospital for hospice services. Message left for Patti at [facility] to lisa on on referral. Additional referrals faxed to: [facility]
--- NOTE | 2021-10-16 16:44 | NUR ---
Wanda calls me saying she has talked with her sons and they are in agreement that getting a MATT application going now is the best choice. Wanda asks what all will be needed and i informed her that any [employer] account, banking accounts, life insurance policies or any other assets she has will be needed. Wanda again expresses that she doesn't feel as if the patient will live long enough for the application to be approved and feels as if she has enough assets to private pay. Wanda expresses a strong desire for the patient to go to [facility] and plans on reaching out to them in the morning.
--- NOTE | 2021-10-16 16:45 | NUR ---
PT INCREASING IN AGITATION THIS AFTERNOON. LEGS DRAWN UP AND RESTLESS IN BED. PT OFTEN MOANING AND IS INCOMPREHENSIBLE. PT REPOSITIONED IN BED BUT IS DIFFICULT TO CONSOLE. PT WITH EYES CLOSED BUT GRIMACING.
--- NOTE | 2021-10-16 19:00 | NUR ---
PT SCOOTED HALF WAY OUT OF BED. 3:1 REPOSITIONING. PT MOANING AT TIMES. RESTLESS. NON RESPONSIVE TO VERBAL COMMANDS. BED ALARM SET.
--- NOTE | 2021-10-16 20:45 | NUR ---
GAVE ROXANOL 5MG PO FOR PAIN. PT MOANING LOUDLY AND VERY RESTLESS.
--- NOTE | 2021-10-17 01:39 | NUR ---
GAVE ROXANOL 5MG PO FOR SIGNS OF PAIN, RESTLESSNESS AND MOANING.
--- NOTE | 2021-10-17 03:00 | NUR ---
GAVE ROXANOL 10MG PO FOR SIGNS OF PAIN: MOANING & RESTLESSNESS.
--- NOTE | 2021-10-17 04:50 | NUR ---
PT CONTINUES MOANING AND IS RESTLESS.
--- NOTE | 2021-10-17 06:39 | NUR ---
PT REMAINS RESTLESS AND MOANING.
--- NOTE | 2021-10-17 15:08 | NUR ---
ATIVAN RESTARTED BEGINING OF SHIFT D/T PT ALMOST ROLLING OUT OF BED MULTIPLE TIMES. THIS HAS HELPED BUT PT IS OFTEN GRIMACING WITH CLENCHED JAW AND IS MOANING IN DISCOMFORT. PT NEEDING TO BE REASSURED OFTEN, ROXANOL ADMINISTERED THIS AFTERNOON AND SHE APPEARS MORE COMFORTABLE.
--- NOTE | 2021-10-17 15:27 | NUR ---
[facility] advised they can tentatively accept on Wednesday for hospice placement.
--- NOTE | 2021-10-17 19:12 | NUR ---
GAVE ROXANOL FOR SIGNS OF PAIN.
--- NOTE | 2021-10-17 19:34 | NUR ---
PT CONTINUES MOANING AND RESTLESS. REPOSITIONED IN BED. F/C DRAINING CLOUDY JANET URINE.
--- NOTE | 2021-10-17 23:15 | NUR ---
PT RESTING AT THIS TIME.
--- NOTE | 2021-10-18 03:57 | NUR ---
PT RESTING PERIODICALLY.
--- NOTE | 2021-10-18 06:08 | NUR ---
PT RESTING MORE TONIGHT. 250 UO FROM F/C.
--- NOTE | 2021-10-18 09:32 | NUR ---
PT RESTING MORE PEACEFULLY THIS MORNING, MOANS AND GRIMACES PERIODICALLY BUT ISN'T CONSISTENT. PT'S LEGS ARE RELAXED AND ISN'T ATTEMPTING TO GET OUT OF BED. PT OPENED EYES BREIFLY TO MY VOICE. PT'S RESPIRATIONS ARE EVEN AND NON LABORED, BREATHING ABOUT 11 TIMES PER MIN.
--- NOTE | 2021-10-18 19:06 | NUR ---
GAVE ROXINAL FOR MOANING AND RESTLESSNESS. SEE MAR.
--- NOTE | 2021-10-19 01:35 | NUR ---
PT MOANING AND RESTLESS. REPOSITIONED AND PERFORMED MOUTHCARE. SEE MAR FOR ATIVAN GIVEN.
--- NOTE | 2021-10-19 05:54 | NUR ---
PT MOANING AND RESTLESS. SEE MAR FOR ROXINAL GIVEN. URINE OUTPUT 250CC THIS SHIFT. NO RESP DISTRESS. LT TOES SL MOTTLED.
--- NOTE | 2021-10-19 07:15 | NUR ---
Assessment completed/ patient is comfort cares only with discharge planning in process for transfer to hospice facility this week, patient is lethargic, moans and groans and appears uncomfortable, I have electrocardiographic technician her Roxanol and IV Ativan this morning and will monitor effectiveness and continue to treat accordingliy, breathing is even and non labored, monreal cath in place and patent, turning and changing position often for comfort
--- NOTE | 2021-10-19 11:00 | NUR ---
Patient having longer apnic periods, breathing is more shallow and lungs sounds becoming more wet, I have notified agronomy supervisor and of declining condition, we have also spoke with the mother/ family and updated on patients deteriorating condition
--- NOTE | 2021-10-19 12:35 | NUR ---
family present and came out and notified me that patient was no longer breathing, I went in and patient was no longer breathing and had no pulse, Notified house supervior and , time of pronounced @ 1237
--- NOTE | 2021-10-19 12:49 | NUR ---
[facility] notified of patient , referral number [id number], not a candidate for tissue, but will wait for [facility] to review. Family has chosen [facility] in [place], [place].
--- NOTE | 2021-10-19 13:09 | NUR ---
[facility] declined donation, may release body at this time. [facility] notified.
--- NOTE | 2021-10-19 14:16 | NUR ---
Body released to home at this time, family has taken all personal belongings home with them
--- NOTE | 2021-10-19 14:28 | NUR ---
Patient's mother arrives to unit. Informed her that i will contact Bhavani at [facility] to let her know of the patient's passing.
== END 2021-10-19 14:20 | disposition expired | DRG 829 ==
LOC: COL.ER 17:48 → SURG 10-07 00:19
PROVIDERS: Internal Medicine; Nurse Practitioner Primary Care; Physician Assistant; Registered Nurse; Student in an Organized Health Care Education/Training Program; Urology; ADMIT Internal Medicine
PROC: 02HV33Z Insertion of Infusion Device into Superior Vena Cava, Percutaneous Approach (ICD-10-PCS; 2021-10-09)
PROC: 0T768DZ Dilation of Right Ureter with Intraluminal Device, Via Natural or Artificial Opening Endoscopic (ICD-10-PCS; principal; 2021-10-10 15:00)
PROC: BT1D1ZZ Fluoroscopy of Right Kidney, Ureter and Bladder using Low Osmolar Contrast (ICD-10-PCS; 2021-10-10 15:00)
DX: C79.89 Secondary malignant neoplasm of other specified sites (principal); G93.41 Metabolic encephalopathy; N13.30 Unspecified hydronephrosis; E87.1 Hypo-osmolality and hyponatremia; E44.0 Moderate protein-calorie malnutrition; E87.2 Acidosis; N17.9 Acute kidney failure, unspecified; Z68.41 Body mass index [BMI] 40.0-44.9, adult; R09.2 Respiratory arrest; C7B.8 Other secondary neuroendocrine tumors; Z66 Do not resuscitate; Z51.5 Encounter for palliative care; I12.9 Hypertensive chronic kidney disease with stage 1 through stage 4 chronic kidney disease, or unspecified chronic kidney disease; N18.32 Chronic kidney disease, stage 3b; E83.52 Hypercalcemia; R31.9 Hematuria, unspecified; F41.9 Anxiety disorder, unspecified; F32.A Depression, unspecified; C54.1 Malignant neoplasm of endometrium; E11.22 Type 2 diabetes mellitus with diabetic chronic kidney disease; E87.5 Hyperkalemia; E87.8 Other disorders of electrolyte and fluid balance, not elsewhere classified; Z79.84 Long term (current) use of oral hypoglycemic drugs; Z79.891 Long term (current) use of opiate analgesic; Z85.42 Personal history of malignant neoplasm of other parts of uterus; Z90.710 Acquired absence of both cervix and uterus; Z90.49 Acquired absence of other specified parts of digestive tract
CPT/HCPCS: 99223-AI; 99231-AI; 99232-AI; 99233-AI; 99239; A4314; C1751; C1769; C2617; C9113; J0690; J1100; J1630; J1644; J1815; J1940; J2060; J2270; J2405; J2430; J2543; J2704; J3010; J3411; J3475; J7030; J7042